=== PATIENT | male | born 1965 | race Caucasian/White ===

== ENCOUNTER 2017-04-17 07:18 | Day surgery (SDC) | payer MEDICAID ==
[2017-04-17 08:15] LABS: HEMOGLOBIN 14.6 g/dL (14.1-18.0); LYMPH # 1.6 K/mm3 (0.7-4.5); LYMPH % 27.3 % (10-50)
[2017-04-17 08:16] LABS: BUN 20 mg/dL (7-18)
[2017-04-17 08:18] LABS: GFR (ESTIMATED) 63 ML/MIN (>60)
--- NOTE | 2017-04-17 14:05 | RADIOLOGY REPORT PS360 ---
CARDIAC CATHETERIZATION DATE OF CATHETERIZATION:04/17/2017 9:02 AM PROCEDURES: 1. Left heart catheterization 2. Left ventriculogram 3. Selective coronary angiogram 4. FFR to the LAD 5. Drug-eluting stent deployment to the mid LAD 6. Drug-eluting stent deployment to the large second diagonal artery INDICATION FOR TEST: 1. Angina pectoris class III 2. Coronary artery disease 3. Ischemic response to adenosine Informed consent was obtained prior to the procedure. COMPLICATIONS: C report below ESTIMATED BLOOD LOSS: Less than 10 ml. TECHNIQUE: One percent lidocaine used to anesthetize the right anterior aspect of the wrist. The right radial artery was accessed via the Seldinger technique. A 6 Spanish sheath was placed in the right radial artery. 2.5 mg of verapamil, 800 mcg of nitroglycerin and 5000 U Heparin were given through the arterial sheath. The Rozina and Shalini catheter were used for the diagnostic procedure. At the end of the diagnostic procedure an additional 10,000 units of heparin was administered intravenously creating an ACT of 342 seconds. An Ikari 3.5 guide catheter was placed in the ascending aorta and an FFR wire was normalized. I cannot easily engage the left main artery therefore this catheter was removed and a JL 3 guide catheter was then placed in the ascending aorta. The guide catheter was used intubate the left main artery and the FFR wire was placed into the LAD distally. Adenosine was infused in the FFR index dropped to 0.81. Upon pullback of the FFR wire into the aorta the FFR index measured 1.03. I was not comfortable subtracting the 0.3 and stenting therefore the wire was re-normalized and the guide catheter was used intubate the left main artery. The FFR wire was in placed distally and adenosine was infused creating an index of 0.78. A 2.75 x 15 mm resolute [place] stent was placed over the FFR wire. As the stent came out the guide catheter into the proximal LAD I could see the stent was misaligned with the 2 balloon markers. No attempt was made to deploy the stent at this time as it was clear the stent was dislodged from the balloon. I gently try to retrieve it into the guide catheter however the stent completely dislodged from the balloon and was freely mobile in the left main artery. The balloon was then advanced and the stent was placed into the mid LAD crossing the diagonal artery. At this point a 1.5 x 15 mm balloon was placed over the FFR wire and an attempt to deploy the stent and continue to up size. The 1.5 mm balloon to make it into the stent that was taken at 20 elizabeth however upon pullback of the balloon the stent continue to track with the balloon. With the stent in the LAD proximal to the diagonal artery and then pulled back the wire placed a wire into the diagonal artery hoping to land the stent into the diagonal artery for crushing or additional ballooning. I was unable to get a 2.5 mm balloon to pass into the stent therefore a choice PT wire was placed alongside the stent and a 2.5 mm balloon was used to crush the stent against the side of the diagonal artery. Part of this stent wasn't to the mid LAD therefore 3.5 x 18 mm resolute Aneudy stent was deployed into the mid LAD just proximal to the second diagonal artery and deployed at 16 elizabeth crushing the proximal portion of the stent out of the lumen. An additional 2.5 x 15 mm resolute [place] stent was then placed into the diagonal artery and deployed at 18 elizabeth completely crushing the stent and keeping out of the lumen. Excellent angiographic results were obtained in the proximal segment however very distally there was loss of the distal diagonal artery where the vessel was less than 1 mm diameter. At this point after achieving excellent results a 1.5 mm balloon was placed distally and deployed at 6 elizabeth opening to open this distal diagonal artery without success. The wire was pulled back and placed into the LAD and a 2.5 mm balloon was used to open the struts going into the LAD. Following this a 2.75 x 15 mm resolute Aneudy stent was placed into the mid LAD poorly overlapping the stent in the LAD and then deployed at 18 elizabeth. Nitroglycerin was given periodically throughout the case. At the end of the procedure ERASMO-3 flow was present down the entire LAD in the proximal midportion of the diagonal artery with distal occlusion of a small less than 1 mm distal branch. The closing ACT was 269 seconds therefore an additional 3000 units of heparin was administered intravenously. Patient artery received Effient 10 mg orally prior to the procedure. ANGIOGRAPHIC RESULTS: 1. The left main artery normal 2. The left anterior descending artery proximally has mild tendon 20% stenosis with additional sequential 30 and 40% stenoses. The mid LAD has a 60% concentric stenosis immediately after a large second diagonal artery 3. The circumflex artery is nondominant and gives rise to a moderate sized first obtuse marginal artery which has mild luminal irregularities while the second obtuse marginal artery also has tendon 20% luminal irregularities 4. The right coronary artery is a dominant vessel and has stents in the proximal mid distal segment in a contiguous manner. The mid segment has a concentric 40% nonflow limiting in-stent restenotic lesion. Distally the vessel has mild atheromatous plaque 5. The APARICIO ventriculogram reveals normal 65% 6. The left ventricular end-diastolic pressure 10 mmHg IMPRESSION: 1. Angiographically indeterminate disease in a large mid LAD which proved to have severe hemodynamic significance creating an FFR index of 0.78 2. Successful stenting of the mid LAD bifurcating into the second diagonal artery and mid LAD as described above 3. Patent stent in the right coronary artery with mild to moderate nonflow limiting in-stent restenosis 4. Normal ejection fraction 5. Normal left ventricular end-diastolic pressure PLAN: 1. Effient and aspirin for one year 2. LDL less than 55 3. Risk factor modification 4. Cardiac rehabilitation 5. Patient will be kept overnight and monitored with anticipated discharge in the morning
[2017-04-17 17:11] VITALS: BP 150/94
== END 2017-04-17 17:30 | disposition home or self-care (01) ==
LOC: CATHLAB 07:18
PROVIDERS: Internal Medicine
PROC: 4A023N7 Measurement of Cardiac Sampling and Pressure, Left Heart, Percutaneous Approach (ICD-10-PCS; principal; 2017-04-17)
PROC: B2111ZZ Fluoroscopy of Multiple Coronary Arteries using Low Osmolar Contrast (ICD-10-PCS; 2017-04-17)
PROC: B2151ZZ Fluoroscopy of Left Heart using Low Osmolar Contrast (ICD-10-PCS; 2017-04-17)
PROC: 4A033BC Measurement of Arterial Pressure, Coronary, Percutaneous Approach (ICD-10-PCS; 2017-04-17)
PROC: 027035Z Dilation of Coronary Artery, One Artery with Two Drug-eluting Intraluminal Devices, Percutaneous Approach (ICD-10-PCS; 2017-04-17)
DX: I25.119 Atherosclerotic heart disease of native coronary artery with unspecified angina pectoris (principal); R94.39 Abnormal result of other cardiovascular function study; I10 Essential (primary) hypertension